=== PATIENT | female | born 1995 | race African-American/Black ===

== ENCOUNTER 2017-03-06 08:30 | Emergency (ER) | payer MEDICAID ==
[~2017-03-06] VITALS: Ht 165.1 cm; Wt 66.3 kg
[2017-03-06 08:34] VITALS: BP 131/81
== END 2017-03-06 10:19 | disposition home or self-care (01) ==
LOC: ED 09:21
DX: M26.601 Right temporomandibular joint disorder, unspecified (principal); H92.03 Otalgia, bilateral
CPT/HCPCS: 99283